=== PATIENT | male | born 1990 | race Two or more races ===

== ENCOUNTER 2023-07-17 17:47 | Emergency (ER) | payer OTHER ==
[~2023-07-17] VITALS: Ht 182.9 cm; Wt 91.0 kg
[2023-07-17 19:15] VITALS: TEMP 98.5
[2023-07-17 22:00] VITALS: BP 138/65; PULSE 70; RESP 16
== END 2023-07-17 22:01 | disposition home or self-care (01) ==
LOC: EMS 17:50
DX: H60.92 Unspecified otitis externa, left ear (principal)
CPT/HCPCS: 99283; Z7502